=== PATIENT | male | born 1985 | race African-American/Black ===

== ENCOUNTER 2017-03-27 17:31 | Emergency (ER) | payer SELFPAY | END 2017-03-27 19:21 | disposition home or self-care (01) | LOC: D.ER 17:31 | DX: J20.9 Acute bronchitis, unspecified (principal); J06.9 Acute upper respiratory infection, unspecified; F17.200 Nicotine dependence, unspecified, uncomplicated ==

== ENCOUNTER 2018-08-29 22:50 | Emergency (ER) | payer SELFPAY ==
[~2018-08-29] VITALS: Ht 180.3 cm; Wt 86.4 kg
[2018-08-29 22:53] VITALS: Ht 180.3 cm; Wt 86.4 kg
[2018-08-30 00:20] LABS: BASOPHILS 1.1 % (0-2); EOSINOPHILS 11.3 % (0-7); HEMATOCRIT 43.8 % (42.0-54.0); HEMOGLOBIN 15.6 g/dL (13.5-17.5); IMMATURE GRANULOCYTES 0.4 % (0-5); LYMPHOCYTES 28.9 % (15-50); MCH 32.6 pg (26.0-34.0); MCHC 35.6 g/dL (31.0-37.0); MCV 91.4 fL (80.0-100.0); MEAN PLATELET VOLUME 11.2 fL (7.4-10.4); MONOCYTES 9.8 % (2-11); NEUTROPHILS 48.5 % (40-80); PLATELET COUNT 193 10x3/uL (130-400); RBC 4.79 10x6/uL (4.20-6.10); RDW 12.4 % (11.5-14.5); WBC 4.7 10x3/uL (4.8-10.8)
[2018-08-30 00:31] LABS: ALBUMIN 3.5 g/dL (3.4-5.0); ALKALINE PHOSPHATASE 36 U/L (46-116); ALT (SGPT) 31 U/L (10-68); BILIRUBIN - TOTAL 0.33 mg/dL (0.2-1.3); CALC OSMOLALITY 273 mosm/kg (275-300); CALCIUM 8.5 mg/dL (8.5-10.1); CARBON DIOXIDE 31.1 mmol/L (21.0-32.0); CHLORIDE - SERUM 104 mmol/L (98-107); CREATININE - SERUM 0.9 mg/dL (0.6-1.3); GLUCOSE 84 mg/dL (74-106); POTASSIUM - SERUM 3.9 mmol/L (3.5-5.1); PROTEIN - SERUM 6.7 g/dL (6.4-8.2); SODIUM 139 mmol/L (136-145); UREA NITROGEN 5 mg/dL (7-18); eGFR NON AFRICAN AMERICAN > 90 mL/min (90-120)
[2018-08-30] MEDS ORDERED: ZOFRAN ODT4 MG/UDTAB PO (00:49)
[2018-08-30 00:52] LABS: APPEARANCE CLEAR (CLEAR); BILIRUBIN NEGATIVE (NEGATIVE); COLOR YELLOW (YELLOW); GLUCOSE NEGATIVE (NEGATIVE); KETONE NEGATIVE (NEGATIVE); NITRITE NEGATIVE (NEGATIVE); PROTEIN NEGATIVE (NEGATIVE); UROBILINOGEN NORMAL (NORMAL)
[2018-08-30 00:53] LABS: BACTERIA FEW /hpf (NONE SEEN); EPITHELIAL CELLS 0-5 /hpf (0-5); MUCUS <1+ /lpf (NONE SEEN); RED CELLS - URINE 0-5 /hpf (0-5)
[2018-08-30] MEDS ORDERED: BACTRIM 400-801 TAB PO (01:02)
[2018-08-30 01:35] VITALS: BP 115/70
== END 2018-08-30 01:35 | disposition home or self-care (01) ==
LOC: D.ER 22:50
PROVIDERS: Emergency Medicine
DX: A08.4 Viral intestinal infection, unspecified (principal)

== ENCOUNTER 2019-02-08 11:31 | Emergency (ER) | payer SELFPAY ==
[~2019-02-08] VITALS: Ht 180.3 cm; Wt 93.2 kg
[~2019-02-08 11:31] MED LIST: BACTRIM 400-801 TAB PO; ZOFRAN ODT4 MG/UDTAB PO
[2019-02-08 11:43] VITALS: Ht 180.3 cm; Wt 93.2 kg
[2019-02-08 12:12] LABS: CALC OSMOLALITY 273 mosm/kg (275-300); CALCIUM 8.1 mg/dL (8.5-10.1); CARBON DIOXIDE 25.6 mmol/L (21.0-32.0); CHLORIDE - SERUM 104 mmol/L (98-107); CREATININE - SERUM 1.1 mg/dL (0.6-1.3); GLUCOSE 90 mg/dL (74-106); POTASSIUM - SERUM 4.2 mmol/L (3.5-5.1); SODIUM 138 mmol/L (136-145); UREA NITROGEN 7 mg/dL (7-18); eGFR NON AFRICAN AMERICAN 82 mL/min (90-120)
[2019-02-08 12:18] LABS: ALBUMIN 3.1 g/dL (3.4-5.0); ALKALINE PHOSPHATASE 39 U/L (46-116); ALT (SGPT) 22 U/L (10-68); BILIRUBIN - TOTAL 0.28 mg/dL (0.2-1.3); PROTEIN - SERUM 6.2 g/dL (6.4-8.2)
[2019-02-08 12:47] LABS: EOSINOPHILS 4.8 % (0-7); HEMATOCRIT 43.2 % (42.0-54.0); HEMOGLOBIN 14.9 g/dL (13.5-17.5); IMMATURE GRANULOCYTES 0.2 % (0-5); LYMPHOCYTES 17.4 % (15-50); MCH 32.6 pg (26.0-34.0); MCHC 34.5 g/dL (31.0-37.0); MCV 94.5 fL (80.0-100.0); MEAN PLATELET VOLUME 10.7 fL (7.4-10.4); MONOCYTES 15.5 % (2-11); NEUTROPHILS 61.1 % (40-80); PLATELET COUNT 216 10x3/uL (130-400); RBC 4.57 10x6/uL (4.20-6.10); RDW 12.4 % (11.5-14.5); WBC 4.8 10x3/uL (4.8-10.8)
[2019-02-08 13:13] LABS: APPEARANCE CLEAR (CLEAR); BILIRUBIN NEGATIVE (NEGATIVE); COLOR YELLOW (YELLOW); GLUCOSE NEGATIVE (NEGATIVE); KETONE MODERATE mg/dL (NEGATIVE); NITRITE NEGATIVE (NEGATIVE); PROTEIN TRACE mg/dL (NEGATIVE); UROBILINOGEN NORMAL (NORMAL)
[2019-02-08 13:18] LABS: BACTERIA FEW /hpf (NEGATIVE); EPITHELIAL CELLS OCC /hpf (0-5); RED CELLS - URINE OCC /hpf (0-5); WHITE CELLS - URINE RARE /hpf (NEGATIVE)
[2019-02-08 13:19] LABS: MUCUS <1+ /lpf (NONE SEEN)
[2019-02-08] MEDS ORDERED: XOFLUZA40 MG PO (13:34)
[2019-02-08] MEDS ORDERED: DURAFLU 325-201 EACH PO (13:36)
[2019-02-08] MEDS ORDERED: ZOFRAN ODT4 MG/UDTAB PO (13:36)
[2019-02-08 14:13] VITALS: BP 126/74
== END 2019-02-08 14:14 | disposition home or self-care (01) ==
LOC: D.ER 11:31
PROVIDERS: Emergency Medicine
DX: J11.1 Influenza due to unidentified influenza virus with other respiratory manifestations (principal)

== ENCOUNTER 2019-09-25 09:20 | Emergency (ER) | payer MEDICAID ==
[~2019-09-25] VITALS: Ht 180.3 cm; Wt 88.6 kg
[~2019-09-25 09:20] MED LIST changes: +DURAFLU 325-201 EACH PO; +XOFLUZA40 MG PO
[2019-09-25 09:34] VITALS: Ht 180.3 cm; Wt 88.6 kg
[2019-09-25] MEDS ORDERED: BROMFED-DM COU473 ML PO (10:24)
[2019-09-25] MEDS ORDERED: MEDROL DOSE PACK4 MG PO (10:24)
[2019-09-25] MEDS ORDERED: AUGMENTIN 875-11 TAB PO (10:24)
[2019-09-25 10:40] LABS: BASOPHILS 0.7 % (0-2); EOSINOPHILS 15.5 % (0-7); HEMOGLOBIN 16.2 g/dL (13.5-17.5); IMMATURE GRANULOCYTES 0.3 % (0-5); LYMPHOCYTES 20.4 % (15-50); MCH 32.6 pg (26.0-34.0); MCHC 34.5 g/dL (31.0-37.0); MCV 94.6 fL (80.0-100.0); MEAN PLATELET VOLUME 10.6 fL (7.4-10.4); MONOCYTES 9.8 % (2-11); NEUTROPHILS 53.3 % (40-80); RBC 4.97 10x6/uL (4.20-6.10); RDW 12.6 % (11.5-14.5); WBC 6.7 10x3/uL (4.8-10.8)
[2019-09-25 10:51] LABS: PLATELET COUNT 271 10x3/uL (130-400)
[2019-09-25 10:54] LABS: CALC OSMOLALITY 276 mosm/kg (275-300); CARBON DIOXIDE 26.3 mmol/L (21.0-32.0); CHLORIDE - SERUM 106 mmol/L (98-107); CREATININE - SERUM 1.1 mg/dL (0.6-1.3); GLUCOSE 85 mg/dL (74-106); POTASSIUM - SERUM 4.3 mmol/L (3.5-5.1); SODIUM 140 mmol/L (136-145); UREA NITROGEN 10 mg/dL (7-18); eGFR NON AFRICAN AMERICAN 82 mL/min (90-120)
[2019-09-25 11:00] LABS: APTT 25.9 SECONDS (22.8-39.4); INR 0.97 (0.85-1.17); PROTIME 12.8 SECONDS (11.6-15.0)
[2019-09-25 11:10] LABS: ALBUMIN 3.6 g/dL (3.4-5.0); ALKALINE PHOSPHATASE 37 U/L (30-120); ALT (SGPT) 26 U/L (10-68); BILIRUBIN - TOTAL 0.42 mg/dL (0.2-1.3); CKMB 0.4 U/L (0.0-3.6); CREATINE KINASE 377 UL (21-232); PROTEIN - SERUM 6.5 g/dL (6.4-8.2)
[2019-09-25 11:11] LABS: TROPONIN-I < 0.017 ng/mL (0.000-0.060)
[2019-09-25 11:30] LABS: PRO BNP 6 pg/mL (0-125)
[2019-09-25 12:00] VITALS: BP 116/83
== END 2019-09-25 12:00 | disposition home or self-care (01) ==
LOC: D.ER 09:20
PROVIDERS: Family Medicine
DX: J32.9 Chronic sinusitis, unspecified (principal); J40 Bronchitis, not specified as acute or chronic; R74.8 Abnormal levels of other serum enzymes

== ENCOUNTER 2020-07-29 09:14 | Emergency (ER) | payer OTHER ==
[~2020-07-29] VITALS: Ht 180.3 cm; Wt 86.4 kg
[~2020-07-29 09:14] MED LIST changes: +AUGMENTIN 875-11 TAB PO; +BROMFED-DM COU473 ML PO; +MEDROL DOSE PACK4 MG PO
[2020-07-29 09:38] VITALS: Ht 180.3 cm; Wt 86.4 kg
[2020-07-29] MEDS ORDERED: STERAPRED DS 1010 MG PO (11:05)
[2020-07-29 11:20] VITALS: BP 130/92
== END 2020-07-29 11:24 | disposition home or self-care (01) ==
LOC: D.ER 09:14
DX: J32.9 Chronic sinusitis, unspecified (principal); J02.9 Acute pharyngitis, unspecified